=== PATIENT | male | born 1965 | race Hispanic/Latino ===

== ENCOUNTER 2021-02-10 15:20 | Outpatient (CLI) | payer OTHER | END 2021-02-10 15:21 | disposition home or self-care (01) | LOC: BICRAD 15:20 | PROVIDERS: ATTEND Surgery | DX: S12.9XXA Fracture of neck, unspecified, initial encounter (principal); M47.812 Spondylosis without myelopathy or radiculopathy, cervical region; R93.7 Abnormal findings on diagnostic imaging of other parts of musculoskeletal system | CPT/HCPCS: 72040 ==

== ENCOUNTER 2021-04-16 08:03 | Outpatient (CLI) | payer OTHER | END 2021-04-16 08:04 | disposition home or self-care (01) | LOC: BICRAD 08:03 | PROVIDERS: ATTEND Surgery | DX: S12.9XXA Fracture of neck, unspecified, initial encounter (principal) | CPT/HCPCS: 72040 ==

== ENCOUNTER 2022-04-10 23:31 | Observation (INO) | payer SELFPAY ==
[2022-04-11 00:26] LABS: #Basophils 0.1 thou/uL (0.0-0.2); #Eosinphils 0.2 thou/uL (0.0-0.7); #Lymphocytes 2.5 thou/uL (1.20-3.40); #Monocytes 0.5 thou/uL (0.11-0.59); #Neutrophils 2.3 thou/uL (1.40-6.50); %Lymphocytes 44.8 % (21.0-51.0); %Monocytes 9.2 % (0.0-10.0); Mean Corpuscular HGB CONC 35.8 g/dL (32.0-36.0); Mean Corpuscular Hemoglobin 33.9 pg (27.0-31.0); Mean Corpuscular Volume 94.8 fL (78.0-98.0); Mean Platelet Volume 6.3 fL (7.4-10.4); Platelet Count 231 thou/uL (130-400); RBC Distribution Width 12.1 % (11.5-14.5); Red Blood Cell (RBC) Count 4.11 mill/uL (4.70-6.10); White Blood Cell (WBC) Count 5.7 thou/uL (4.8-10.8)
[2022-04-11 00:49] LABS: ALT (SGPT) 32 U/L (8-55); AST (SGOT) 37 U/L (5-34); Albumin 3.8 g/dL (3.5-5.0); Alkaline Phosphatase 97 U/L (40-110); Anion Gap 14 mmol/L (10-20); BUN (Urea Nitrogen) 12 mg/dL (8.4-25.7); Bilirubin, Total 0.4 mg/dL (0.2-1.2); Calc. Creatinine Clearance 0 mL/min (70-130); Carbon Dioxide 23 mmol/L (22-29); Chloride 103 mmol/L (98-107); Globulin 3.9 g/dL (2.4-3.5); Glucose 210 mg/dL (70-105); Potassium 3.9 mmol/L (3.5-5.1); Protein, Total 7.7 g/dL (6.0-8.3); Sodium 136 mmol/L (136-145)
[2022-04-11] MEDS ORDERED: Aspirin Chewable 81 MG TAB ONE (01:39)
[2022-04-11] MEDS ORDERED: Acetaminophen 325 MG TAB PO PRN (01:58)
[2022-04-11] MEDS ORDERED: Labetalol HCl 100 MG/20 ML VIAL SLOW IVP PRN (01:58)
[2022-04-11] MEDS ORDERED: Ondansetron PF 4 MG/2 ML Vial IVP PRN (01:58)
[2022-04-11] MEDS ORDERED: hydrALAZINE 20 MG/ML VIAL SLOW IVP PRN (01:58)
[2022-04-11] MEDS ORDERED: Dextrose 50% Abboject 50 ML SYRINGE SLOW IVP PRN (02:01)
[2022-04-11] MEDS ORDERED: Dextrose 5% in Water 1,000 ML IV PRN (02:01)
[2022-04-11] MEDS ORDERED: HumaLOG 300 UNITS/3 ML VIAL SC PRN (02:01)
[2022-04-11 04:44] LABS: #Basophils 0.1 thou/uL (0.0-0.2); #Eosinphils 0.3 thou/uL (0.0-0.7); #Lymphocytes 2.6 thou/uL (1.20-3.40); #Monocytes 0.6 thou/uL (0.11-0.59); #Neutrophils 2.1 thou/uL (1.40-6.50); %Eosinophils 4.9 % (0.0-10.0); %Lymphocytes 47.1 % (21.0-51.0); %Monocytes 10.4 % (0.0-10.0); %Neutrophils 36.7 % (42.0-75.0); Hemoglobin 13.9 g/dL (14.0-18.0); Mean Corpuscular HGB CONC 35.3 g/dL (32.0-36.0); Mean Corpuscular Hemoglobin 33.8 pg (27.0-31.0); Mean Corpuscular Volume 95.7 fL (78.0-98.0); Mean Platelet Volume 6.4 fL (7.4-10.4); Platelet Count 231 thou/uL (130-400); RBC Distribution Width 12.3 % (11.5-14.5); Red Blood Cell (RBC) Count 4.13 mill/uL (4.70-6.10); White Blood Cell (WBC) Count 5.6 thou/uL (4.8-10.8)
[2022-04-11 04:56] LABS: Hemoglobin A1c 8.1 % (4.0-6.0)
[2022-04-11 05:12] LABS: Anion Gap 14 mmol/L (10-20); BUN (Urea Nitrogen) 11 mg/dL (8.4-25.7); Calc. Creatinine Clearance 0 mL/min (70-130); Calcium 8.7 mg/dL (7.8-10.44); Carbon Dioxide 22 mmol/L (22-29); Chloride 107 mmol/L (98-107); Cholesterol 206 mg/dl (< 200 Desired); Glucose 150 mg/dL (70-105); HDL Cholesterol 68 mg/dL (>60 Neg Risk); LDL Cholesterol, Calculated 96 mg/dL; Potassium 3.9 mmol/L (3.5-5.1); Sodium 139 mmol/L (136-145); Triglycerides 209 mg/dL (Less than 150)
[2022-04-11 05:45] VITALS: BMI 21.2
[2022-04-11] MEDS ORDERED: Enoxaparin Sodium 40 MG/0.4 ML SYRINGE SC SCH (09:00)
[2022-04-11] MEDS ORDERED: Iopamidol-370 76% 500 ML 1 ML ONE (10:34)
[2022-04-11] MEDS: HumaLOG 300 UNITS/3 ML VIAL SC PRN ×2 (10:50→17:22)
[2022-04-11] MEDS ORDERED: Lorazepam 1 MG TAB PO PRN (15:25)
[2022-04-11] MEDS ORDERED: Lorazepam 2 MG/ML VIAL IM PRN (15:25)
[2022-04-11] MEDS ORDERED: Electrolyte Replacement Protocol 1 EACH FS SCH (15:30)
[2022-04-11 16:47] LABS: Magnesium 2.1 mg/dL (1.6-2.6)
[2022-04-11 17:11] LABS: SARS-CoV-2 PCR by NAA Not Detected (NotDetected)
[2022-04-11] MEDS ORDERED: Atorvastatin Calcium 20 MG TAB PO SCH (21:00)
[2022-04-12] MEDS ORDERED: Folic Acid 1 MG TAB PO SCH (09:00)
[2022-04-12] MEDS ORDERED: Aspirin 81 mg Enteric Coated Tablet PO SCH (09:00)
[2022-04-12] MEDS ORDERED: Multivit, Therapeutic 1 TAB PO SCH (09:00)
[2022-04-12] MEDS: HumaLOG 300 UNITS/3 ML VIAL SC PRN (11:04)
[2022-04-12] MEDS ORDERED: Lorazepam 1 MG TAB PO PRN (15:25)
[2022-04-12 15:48] VITALS: BP 165/84; TEMP 98
[2022-04-13] MEDS ORDERED: Lorazepam 1 MG TAB PO PRN (15:25)
[2022-04-14] MEDS ORDERED: Thiamine 100 MG TAB PO SCH (09:00)
[2022-04-14] MEDS ORDERED: Lorazepam 0.5 MG TAB PO PRN (15:25)
== END 2022-04-12 19:26 | disposition home or self-care (01) ==
LOC: ERS 23:31 → NEURO 04-11 01:53
PROVIDERS: ADMIT Emergency Medicine; ATTEND Emergency Medicine
DX: G45.9 Transient cerebral ischemic attack, unspecified (principal); F10.10 Alcohol abuse, uncomplicated; M19.039 Primary osteoarthritis, unspecified wrist; I10 Essential (primary) hypertension; E11.65 Type 2 diabetes mellitus with hyperglycemia; K02.9 Dental caries, unspecified; J32.8 Other chronic sinusitis; J34.1 Cyst and mucocele of nose and nasal sinus; I08.1 Rheumatic disorders of both mitral and tricuspid valves; Z87.891 Personal history of nicotine dependence; Z20.822 Contact with and (suspected) exposure to COVID-19
CPT/HCPCS: 36415; 36416; 70450; 70496; 70498; 70551; 80053; 80061; 83036; 83735; 84484; 85025; 90471; 90732; 93005; 93306; 96372; G0009; G0378; J1650; J1815; Q9967; U0003; U0005